=== PATIENT | female | born 1990 | race Caucasian/White ===

== ENCOUNTER 2021-02-02 13:20 | Outpatient (CLI) | payer OTHER | END 2021-02-02 18:14 | disposition home or self-care (01) | LOC: GENOP 13:20 | DX: O99.891 Other specified diseases and conditions complicating pregnancy (principal); R55 Syncope and collapse; O99.332 Smoking (tobacco) complicating pregnancy, second trimester; F17.210 Nicotine dependence, cigarettes, uncomplicated; Z3A.27 27 weeks gestation of pregnancy | CPT/HCPCS: 81001; 82962; G0463 ==

== ENCOUNTER 2021-04-13 11:19 | Inpatient (IN) | payer OTHER ==
[~2021-04-13] VITALS: Ht 165.1 cm; Wt 84.4 kg
[2021-04-13 12:05] LABS: HEMOGLOBIN 13.8 gm/dl (12.3-15.3); RED BLOOD COUNT 4.17 M/UL (4.00-5.10); WHITE BLOOD COUNT 7.3 K/UL (4.5-11.0)
[2021-04-13] MEDS ORDERED: PRENATABS RX T1 EACH PO (12:21)
[2021-04-13] MEDS ORDERED: DOCUSATE SODIU100 MG PO (12:39)
[2021-04-13] MEDS ORDERED: HYDROCODON-ACE1 EAC4 PO (12:39)
[2021-04-13] MEDS ORDERED: IBUPROFEN600 MG PO (12:39)
[2021-04-14 07:25] LABS: HEMOGLOBIN 12.4 gm/dl (12.3-15.3)
== END 2021-04-14 16:17 | disposition home or self-care (01) | DRG 788 ==
LOC: GENOP 11:19 → OB 12:03
PROVIDERS: ADMIT Obstetrics & Gynecology
PROC: 4A1HXCZ Monitoring of Products of Conception, Cardiac Rate, External Approach (ICD-10-PCS; 2021-04-13)
PROC: 10D00Z1 Extraction of Products of Conception, Low, Open Approach (ICD-10-PCS; principal; 2021-04-13 13:08)
DX: O34.211 Maternal care for low transverse scar from previous cesarean delivery (principal); Z3A.37 37 weeks gestation of pregnancy; Z37.0 Single live birth; O99.334 Smoking (tobacco) complicating childbirth; Z20.822 Contact with and (suspected) exposure to COVID-19; O42.92 Full-term premature rupture of membranes, unspecified as to length of time between rupture and onset of labor
CPT/HCPCS: 36415; 81001; 82800; 85014; 85018; 85025; 96360; 96361; C9113; G0378; G0379; J0690; J2274; J2370; J2590; J2765; J7120; U0002